=== PATIENT | female | born 1985 | race American Indian/Alaskan Native ===

== ENCOUNTER → 2016-07-12 | Outpatient (REF) | payer BC, OTHER ==
[2016-07-12 12:17] LABS: LUTEINIZING HORMONE 21.8 mIU/mL; PROGESTERONE 0.3 NG/ML
[2016-07-12 12:18] LABS: ESTRADIOL 45.5 PG/ML
== END ==
LOC: M LABDRAW1 11:50
PROVIDERS: ATTEND Obstetrics & Gynecology Reproductive Endocrinology
DX: N97.9 Female infertility, unspecified (principal)

== ENCOUNTER → 2016-07-15 | Outpatient (REF) | payer OTHER ==
[2016-07-15 13:09] LABS: ESTRADIOL 43.6 PG/ML; LUTEINIZING HORMONE 26.9 mIU/mL; PROGESTERONE < 0.2 NG/ML
== END ==
LOC: M LABDRAW1 12:42
PROVIDERS: ATTEND Obstetrics & Gynecology Reproductive Endocrinology
DX: N97.9 Female infertility, unspecified (principal)

== ENCOUNTER → 2017-01-21 | Outpatient (REF) | payer BC, OTHER ==
[2017-01-21 16:22] LABS: HCG, SERUM QUANTITATIVE < 1.0 MIU/ML; PROGESTERONE 0.9 NG/ML
[2017-01-21 16:23] LABS: ESTRADIOL 46.3 PG/ML; FOLLICLE STIMULATING HORMONE 4.9 mIU/mL; LUTEINIZING HORMONE 18.9 mIU/mL
== END ==
LOC: M LABDRAW1 15:50
PROVIDERS: ATTEND Obstetrics & Gynecology Reproductive Endocrinology
DX: E28.9 Ovarian dysfunction, unspecified (principal)

== ENCOUNTER → 2017-01-29 | Outpatient (CLI) | payer OTHER ==
[2017-01-29 10:53] LABS: PROGESTERONE 0.8 NG/ML
[2017-01-29 10:54] LABS: LUTEINIZING HORMONE 3.6 mIU/mL
== END ==
LOC: M LABDRAW1 09:16
PROVIDERS: ATTEND Obstetrics & Gynecology Reproductive Endocrinology
DX: E28.2 Polycystic ovarian syndrome (principal)

== ENCOUNTER → 2017-02-03 | Outpatient (REF) | payer OTHER ==
[2017-02-03 12:12] LABS: HCG, SERUM QUANTITATIVE < 1.0 MIU/ML
[2017-02-03 12:34] LABS: PROGESTERONE 4.2 NG/ML
[2017-02-03 12:36] LABS: LUTEINIZING HORMONE 10.3 mIU/mL
[2017-02-03 12:38] LABS: FOLLICLE STIMULATING HORMONE 15.6 mIU/mL
[2017-02-03 13:50] LABS: ESTRADIOL 12235.5 PG/ML
== END ==
LOC: M LABDRAW1 11:27
PROVIDERS: ATTEND Obstetrics & Gynecology Reproductive Endocrinology
DX: E28.9 Ovarian dysfunction, unspecified (principal)

== ENCOUNTER → 2017-03-24 | Outpatient (REF) | payer OTHER ==
[2017-03-24 13:26] LABS: HCG, SERUM QUANTITATIVE < 1.0 MIU/ML
[2017-03-24 14:00] LABS: PROGESTERONE 0.9 NG/ML
[2017-03-24 14:00] LABS: LUTEINIZING HORMONE 28.8 mIU/mL
[2017-03-24 14:01] LABS: ESTRADIOL 44.3 PG/ML; FOLLICLE STIMULATING HORMONE 5.4 mIU/mL
== END ==
LOC: M LABDRAW1 13:01
DX: N97.9 Female infertility, unspecified (principal)

== ENCOUNTER → 2017-04-02 | Outpatient (REF) | payer OTHER ==
[2017-04-02 17:41] LABS: PROGESTERONE 0.4 NG/ML
[2017-04-02 17:42] LABS: ESTRADIOL 1006.8 PG/ML; LUTEINIZING HORMONE 16.5 mIU/mL
== END ==
LOC: M LABDRAW1 14:56
DX: E28.9 Ovarian dysfunction, unspecified (principal)

== ENCOUNTER → 2017-04-14 | Outpatient (REF) ==
[2017-04-14 15:18] LABS: ESTRADIOL 1001.8 PG/ML
== END ==
LOC: M LAB REF 14:46
DX: Z79.899 Other long term (current) drug therapy (principal)

== ENCOUNTER → 2017-04-18 | Outpatient (REF) | payer OTHER ==
[2017-04-18 12:45] LABS: HCG, SERUM QUANTITATIVE 125 MIU/ML
== END ==
LOC: M LABDRAW1 11:40
DX: N97.9 Female infertility, unspecified (principal)

== ENCOUNTER → 2017-04-21 | Outpatient (REF) | payer OTHER ==
[2017-04-21 13:43] LABS: PROGESTERONE 24.5 NG/ML
[2017-04-21 13:47] LABS: HCG, SERUM QUANTITATIVE 431 MIU/ML
== END ==
LOC: M LABDRAW1 13:05
DX: O09.00 Supervision of pregnancy with history of infertility, unspecified trimester (principal)

== ENCOUNTER → 2017-04-28 | Outpatient (REF) | payer OTHER ==
[2017-04-28 16:14] LABS: HCG, SERUM QUANTITATIVE 6498 MIU/ML
== END ==
LOC: M LABDRAW1 13:22
DX: O09.00 Supervision of pregnancy with history of infertility, unspecified trimester (principal); Z3A.00 Weeks of gestation of pregnancy not specified
CPT/HCPCS: 84443

== ENCOUNTER → 2017-05-05 | Outpatient (REF) | payer OTHER ==
[2017-05-05 14:02] LABS: PROGESTERONE 35.6 NG/ML
[2017-05-05 14:03] LABS: ESTRADIOL 710.2 PG/ML; FOLLICLE STIMULATING HORMONE < 0.3 mIU/mL; LUTEINIZING HORMONE 0.1 mIU/mL
[2017-05-05 14:09] LABS: HCG, SERUM QUANTITATIVE 29253 MIU/ML
== END ==
LOC: M LABDRAW1 13:31
DX: N97.9 Female infertility, unspecified (principal)

== ENCOUNTER → 2017-05-12 | Outpatient (REF) | payer OTHER ==
[2017-05-12 13:13] LABS: HCG, SERUM QUANTITATIVE 72209 MIU/ML
[2017-05-12 13:17] LABS: PROGESTERONE 49.5 NG/ML
[2017-05-12 13:18] LABS: ESTRADIOL 1064.6 PG/ML; FOLLICLE STIMULATING HORMONE < 0.3 mIU/mL; LUTEINIZING HORMONE 0.1 mIU/mL
== END ==
LOC: M LABDRAW1 11:47
DX: N97.9 Female infertility, unspecified (principal)